=== PATIENT | male | born 1985 | race Caucasian/White ===

== ENCOUNTER 2019-03-19 21:20 | Emergency (ER) | payer MEDICAID ==
[~2019-03-19] VITALS: Ht 188 cm; Wt 86.0 kg
[2019-03-19 21:32] VITALS: BP 133/84
== END 2019-03-19 22:15 | disposition home or self-care (01) ==
LOC: ED 22:00
DX: K02.9 Dental caries, unspecified (principal); Z88.6 Allergy status to analgesic agent
CPT/HCPCS: 99283